=== PATIENT | male | born 1960 | race Caucasian/White ===

== ENCOUNTER 2022-01-17 13:28 | Emergency (ER) | payer BC, SELFPAY ==
[2022-01-17 13:43] VITALS: BP 135/94; PULSE 73; RESP 16; TEMP 36.3; O2SAT 95; BMI 29.5
--- NOTE | 2022-01-17 13:59 | ED.GENADULT ---
HPI - General Adult General Time Seen by Provider: 13:58 Date Seen: 01/17/22 Chief complaint: Allergic Reaction Stated complaint: RASH Time Seen by Provider: 01/17/22 13:51 Source: patient Mode of arrival: ambulatory Limitations: no limitations History of Present Illness HPI narrative: Patient is a 61 year white male has an allergic-type rash on his right side buttock area thighs. He does work in a pretty hot and sweaty environment. He has not been unable to get it to go away with topical Benadryl. No new allergens or exposures to his knowledge. No new medications. No shortness of breath, no tongue swelling, no lip swelling, no breathing difficulty. Reports the rash is pruritic. Related Data Previous Rx's Medication Instructions Recorded prednisone 20 mg tablet 20 mg PO BID #6 tab 01/17/22 Allergies Allergy/AdvReac Type Severity Reaction Status Date / Time No Known Drug Allergies Allergy Verified 01/17/22 13:51 Review of Systems Status of ROS: Reports: 6 or more systems reviewed and unremarkable except as noted in History and below Exam Narrative: Exam Narrative: Patient vital signs unremarkable O2 sat is excellent HEENT is unremarkable Lungs are clear Skin exam shows a blistery heat rash type abnormality over the buttock upper buttock lower back right flank In general the patient is no apparent distress, alert orient x3, noncyanotic. Const: Vital Signs, click to edit/add: Vital Signs - 24 hr 01/17/22 13:43 Temperature 97.3 F L Pulse Rate [Left P ulse Oximeter] 73 Respiratory Rate 16 Blood Pressure [ri ght arm] 135/94 H Pulse Oximetry 95 Course Course Hospital Course: Prednisone 50 mg given orally Vital Signs Vital signs: Initial Vital Signs Temperature 97.3 F L 01/17/22 13:43 Temperature Source Temporal Artery Scan 01/17/22 13:43 Pulse Rate 73 01/17/22 13:43 Respiratory Rate 16 01/17/22 13:43 Blood Pressure 135/94 H 01/17/22 13:43 Blood Pressure Mean 107 01/17/22 13:43 Blood Pressure Position Sitting 01/17/22 13:43 Pulse Oximetry 95 01/17/22 13:43 Oxygen Delivery Method 01/17/22 13:43 Vital Signs Temperature 97.3 F L 01/17/22 13:43 Pulse Rate 73 01/17/22 13:43 Respiratory Rate 16 01/17/22 13:43 Blood Pressure 135/94 H 01/17/22 13:43 Pulse Oximetry 95 01/17/22 13:43 Temperature 97.3 F L 01/17/22 13:43 Pulse Rate 73 01/17/22 13:43 Respiratory Rate 16 01/17/22 13:43 Blood Pressure 135/94 H 01/17/22 13:43 Pulse Oximetry 95 01/17/22 13:43 Medical Decision Making MDM Narrative Medical decision making narrative: Patient has a allergic versus contact type dermatitis on his buttock hip. Certainly this could be a heat rash type abnormality as well. I would recommend he use Benadryl 25 mg b.i.d. to t.i.d. for the next 3-5 days, will give him prednisone now and then prednisone 20 mg b.i.d. x3 days. Topical lotion as needed because he is on Benadryl I would recommend he be off work for a couple days likely 2-3 days until he is feeling better. Think through any new potential exposures either food topicals, soaps etc. Discharge Plan Discharge Clinical Impression: Allergic reaction Patient Disposition: Home, Self-Care Condition: Stable Additional Instructions: off work x 3 days, benadryl 25 mg 3 x day x 3 days, prednisone 20 mg 2 x day x 3 days. lotion topically, update primary in 2-3 days. return to ed sooner as needed. Activity Level: Light activity Discharge Diet: Regular Prescriptions: New prednisone 20 mg tablet 20 mg PO BID Qty: 6 0RF Follow Up/Referrals: Marko Car MD [Primary Care Provider] - Stand Alone Forms: [employer] Info Instructions
[2022-01-17] MEDS: predniSONE 10 MG TABLET 50 MG PO (14:12)
== END 2022-01-17 14:16 | disposition home or self-care (01) ==
PROVIDERS: Emergency Provider Family Medicine; PCP Family Medicine
DX: L23.9 Allergic contact dermatitis, unspecified cause (principal)
CPT/HCPCS: 99283; 99284; J7512